=== PATIENT | female | born 1945 | race Caucasian/White ===

== ENCOUNTER → 2024-03-04 | Outpatient (CLI) | payer MEDICARE | END | disposition home or self-care (01) | LOC: RAD 13:17 | PROVIDERS: ATTEND Podiatrist Foot & Ankle Surgery | DX: M19.071 Primary osteoarthritis, right ankle and foot (principal); M85.671 Other cyst of bone, right ankle and foot; M77.51 Other enthesopathy of right foot and ankle; M79.671 Pain in right foot; M25.871 Other specified joint disorders, right ankle and foot | CPT/HCPCS: 73700 ==

== ENCOUNTER 2024-11-14 12:40 | Inpatient (IN) | payer MEDICARE, MEDICAID ==
[~2024-11-14] VITALS: Ht 160 cm; Wt 78.0 kg
[~2024-11-14 12:40] MED LIST: APIX5TAB3 PO; ASPI-611 PO; BUPR-561 PO; CALCIUM PO; ESCI20TA39 PO; ESTR1TAB28 PO; FAMO20TA8 PO; FERR324T2 PO; FOLI0.4T14 PO; LEVO175T7 PO; NAPR-1480 PO; PANT40TA54 PO; PRAM0.5T12 PO; PRESERVISION PO; SPIR1TAB4 PO; VITAMIN B-1 PO
[2024-11-14] MEDS: HYDROcodone/acetaminophen 10/325mg tab PO ONE (15:23)
[2024-11-14 15:28] LABS: BASOPHILS # (AUTO) 0.1 X10'3 (0-0.2); BASOPHILS % (AUTO) 0.3 % (0-1); EOSINOPHILS % (AUTO) 0.1 % (0-6); LYMPHOCYTES # (AUTO) 0.4 X10'3 (1.1-4.8); LYMPHOCYTES % (AUTO) 1.4 % (21-51); MEAN CORPUSCULAR HEMOGLOBIN 22.5 PG (27.0-31.0); MEAN CORPUSCULAR HGB CONC 30.6 g/dL (33.0-36.5); MEAN CORPUSCULAR VOLUME 73.6 FL (78-98); MEAN PLATELET VOLUME 6.8 FL (7.4-10.4); MONOCYTES # (AUTO) 1.8 X10'3 (0-0.9); MONOCYTES % (AUTO) 6.2 % (2-12); NEUTROPHILS # (AUTO) 26.2 X10'3 (1.8-7.7); PLATELET COUNT 379 X10'3 (140-440); RED BLOOD COUNT 2.73 X10'6 (4.20-5.60); RED CELL DISTRIBUTION WIDTH 21.8 % (11.5-14.5)
[2024-11-14 15:33] LABS: WHITE BLOOD COUNT 28.5 X10'3 (4.5-11.0)
[2024-11-14 15:34] LABS: HEMATOCRIT 20.1 % (35.0-45.0); HEMOGLOBIN 6.1 g/dl (12.0-16.0)
[2024-11-14 15:35] LABS: ALBUMIN 2.2 G/DL (3.4-5.0); ANION GAP 9 (8-16); BLOOD UREA NITROGEN 61 MG/DL (7-18); BUN/CREATININE RATIO 39.9 (10.0-20.0); CALCIUM 8.8 MG/DL (8.5-10.1); CHLORIDE 103 MMOL/L (99-107); CREATININE 1.53 MG/DL (0.40-0.90); GLUCOSE 61 MG/DL (70-104); MAGNESIUM 1.9 MG/DL (1.5-2.4); POTASSIUM 3.7 MMOL/L (3.5-5.1); SODIUM 139 MMOL/L (135-145); TOTAL CARBON DIOXIDE 26.6 MMOL/L (24-32); eCRCL 25 ML/MIN; eGFR 33 ML/MIN
[2024-11-14 15:57] LABS: ANISOCYTOSIS 3+; MICROCYTOSIS 1+; PLATELET ESTIMATE NORMAL; TOTAL CELLS COUNTED 100
[2024-11-14 15:58] LABS: HYPOCHROMASIA 2+
[2024-11-14] MEDS: LIDOcaine/PRILOcaine 5gm cream TP ONE (16:10)
[2024-11-14] MEDS: normal saline 1000ML IV soln IVB ONE (16:28)
[2024-11-14] MEDS: CefTRIAXone 2gm/D5W 50ml BAG 50 ML IV ONE (16:30)
[2024-11-14] MEDS ORDERED: diphenhydrAMINE 25mg capsule PO PRN (17:25)
[2024-11-14] MEDS ORDERED: mag hydrox/Alum hydrox/simeth 30ml oral suspension PO PRN (17:25)
[2024-11-14] MEDS ORDERED: morphine 2 MG/ML inj. syringe IV PRN (17:25)
[2024-11-14] MEDS ORDERED: acetaminophen 650mg rectal suppository RC PRN (17:25)
[2024-11-14] MEDS ORDERED: magnesium hydroxide 30ml (MOM) UD suspension PO PRN (17:25)
[2024-11-14] MEDS ORDERED: potassium Cl 20 mEq SR tablet PO PRN (17:25)
[2024-11-14] MEDS ORDERED: magnesium Cl slow-release 64mg tablet PO PRN (17:25)
[2024-11-14] MEDS ORDERED: ondansetron/PF 4mg/2ml inj IV PRN (17:25)
[2024-11-14] MEDS ORDERED: diphenhydrAMINE 50 mg/ml inj IV PRN (17:25)
[2024-11-14] MEDS ORDERED: ondansetron 4mg rapidly disintigrating tab PO PRN (17:25)
[2024-11-14] MEDS ORDERED: magnesium sulf-water 2g/50mL 50 ML IV PRN (17:25)
[2024-11-14] MEDS ORDERED: acetaminophen 325mg tablet PO PRN ×2 (17:25)
[2024-11-14] MEDS ORDERED: magnesium sulf-water 4G/100mL 100 ML IV PRN (17:25)
[2024-11-14] MEDS ORDERED: bisacodyl 10mg suppository rectal RC PRN (17:25)
[2024-11-14 17:53] LABS: APTT 34 SECONDS (22-32); INR 1.4 INR; PROTHROMBIN TIME 14.6 SECONDS (9.0-12.0)
[2024-11-14] MEDS: ringers solution, lacted 1,000 ML IV ONE (17:55)
[2024-11-14 18:07] LABS: PHOSPHORUS 4.7 MG/DL (2.3-4.5); PRO BRAIN NATRIURETIC PEPTIDE 7068 PG/ML (0-450)
[2024-11-14 18:21] LABS: HEMOGLOBIN A1C 6.3 % (4.5-6.2)
[2024-11-14] MEDS: VANCOMYCIN/WATER FOR INJ (PEG) 750MG/150 ML IVPB IV SCH (18:46)
[2024-11-14] MEDS: pantoprazole 40 MG vial IV ONE (18:48)
[2024-11-14 18:50] LABS: LIPASE 29 U/L (16-77)
[2024-11-14 19:10] VITALS: BP 84/46; PULSE 62; RESP 20; TEMP 96.7
[2024-11-14 19:25] VITALS: BP 101/52; PULSE 60; RESP 18; TEMP 96.9
[2024-11-14] MEDS ORDERED: NAPR-1168 (19:26)
[2024-11-14] MEDS: dextrose 50%-water 50ml dispensing syringe IV ONE (19:29)
[2024-11-14] MEDS: normal saline 1000ml 1,000 ML IV SCH (19:37)
[2024-11-14 19:38] LABS: OCCULT BLOOD STOOL POSITIVE (Neg)
[2024-11-14 19:55] VITALS: BP 105/48; PULSE 58; RESP 18; TEMP 96.6
[2024-11-14] MEDS: K and/or MAG REPLACEMENT MC SCH (20:00)
[2024-11-14] MEDS: docusate sod 100mg capsule PO SCH (20:06)
[2024-11-14 20:10] VITALS: BP 108/37; PULSE 60; RESP 16; TEMP 96.9
[2024-11-14 20:45] VITALS: BP 103/51; PULSE 59; RESP 16; TEMP 97
[2024-11-14 22:50] VITALS: BP 121/98; PULSE 56; RESP 12; TEMP 96.7; O2SAT 91
[2024-11-14 22:57] LABS: BILIRUBIN,URINE NEGATIVE (Neg); CLARITY,URINE CLEAR (Clear); COLOR,URINE YELLOW (Yellow); GLUCOSE, URINE NEGATIVE (Neg); KETONES,URINE NEGATIVE (Neg); LEUKOCYTE ESTERASE ,URINE TRACE (Neg); NITRITES, URINE NEGATIVE (Neg); OCCULT BLOOD,URINE NEGATIVE (Neg); PH,URINE 5.5 (4.8-8.0); PROTEIN,URINE NEGATIVE (Neg); UROBILINOGEN,URINE 0.2 E.U/dL (0.2-1.0)
[2024-11-14 23:00] LABS: UA COLLECTION TYPE CLN CATCH MIDSTREAM
[2024-11-14 23:03] LABS: BACTERIA,URINE 1+ /HPF (Neg); RBC,URINE NONE SEEN /HPF (0-2); SQUAMOUS EPITHELIAL CELL,UR MODERATE /LPF (FEW); WBC,URINE 0-4 /HPF (0-4)
[2024-11-14] MEDS: pantoprazole 40MG/NS 100ML BAG 100 ML IV SCH (23:47)
[2024-11-14] MEDS: HYDROcodone/acetaminophen 5mg/325mg tablet PO PRN (23:47)
[2024-11-15] VITALS (22 sets, daily range): BP systolic 90–139; BP diastolic 42–66; PULSE 59–69; RESP 10–18; TEMP 97.2–97.9; O2SAT 92–100
[2024-11-15] MEDS ORDERED: cefazolin 2gm/D5W 100mL 100 ML IV ONE
[2024-11-15 07:02] LABS: BASOPHILS % (AUTO) 0.2 % (0-1); EOSINOPHILS # (AUTO) 0.2 X10'3 (0-0.9); EOSINOPHILS % (AUTO) 0.6 % (0-6); HEMATOCRIT 23.1 % (35.0-45.0); HEMOGLOBIN 7.2 g/dl (12.0-16.0); LYMPHOCYTES # (AUTO) 0.5 X10'3 (1.1-4.8); LYMPHOCYTES % (AUTO) 1.8 % (21-51); MEAN CORPUSCULAR HEMOGLOBIN 23.4 PG (27.0-31.0); MEAN CORPUSCULAR HGB CONC 30.9 g/dL (33.0-36.5); MEAN CORPUSCULAR VOLUME 75.7 FL (78-98); MONOCYTES # (AUTO) 1.1 X10'3 (0-0.9); MONOCYTES % (AUTO) 4.3 % (2-12); NEUTROPHILS # (AUTO) 23.9 X10'3 (1.8-7.7); NEUTROPHILS % (AUTO) 93.1 % (42-75); PLATELET COUNT 298 X10'3 (140-440); RED BLOOD COUNT 3.06 X10'6 (4.20-5.60); RED CELL DISTRIBUTION WIDTH 21.4 % (11.5-14.5)
[2024-11-15 07:14] LABS: ALANINE AMINOTRANSFERASE 27 U/L (12-78); ALBUMIN 1.7 G/DL (3.4-5.0); ALBUMIN/GLOBULIN RATIO 0.5 (1.1-1.5); ALKALINE PHOSPHATASE 128 IU/L (46-116); ANION GAP 12 (8-16); ASPARTATE AMINO TRANSFERASE 26 U/L (10-37); BLOOD UREA NITROGEN 56 MG/DL (7-18); BUN/CREATININE RATIO 36.8 (10.0-20.0); CALCIUM 8.1 MG/DL (8.5-10.1); CHLORIDE 105 MMOL/L (99-107); CHOL/HDL RATIO 2.6 (0.00-4.99); CHOLESTEROL 63 MG/DL (0-200); CREATININE 1.52 MG/DL (0.40-0.90); GLUCOSE 66 MG/DL (70-104); HDL CHOLESTEROL 24 MG/DL (35-60); LDL CHOLESTEROL 26 MG/DL (50-100); MAGNESIUM 1.6 MG/DL (1.5-2.4); POTASSIUM 3.6 MMOL/L (3.5-5.1); SODIUM 140 MMOL/L (135-145); TOTAL CARBON DIOXIDE 23.2 MMOL/L (24-32); TOTAL PROTEIN 5.2 G/DL (6.4-8.2); TRIGLYCERIDES 52 MG/DL (20-135); eCRCL 25 ML/MIN; eGFR 33 ML/MIN
[2024-11-15 07:21] LABS: WHITE BLOOD COUNT 25.7 X10'3 (4.5-11.0)
[2024-11-15 07:51] LABS: ANISOCYTOSIS 3+; MICROCYTOSIS 1+; PLATELET ESTIMATE NORMAL; TOTAL CELLS COUNTED 100
[2024-11-15 07:53] LABS: ELLIPTOCYTES 1+; HYPOCHROMASIA 2+; POLYCHROMASIA 1+; SCHISTOCYTES FEW; TARGET CELLS FEW
[2024-11-15] MEDS: CefTRIAXone/D5W-Rocephin 1gm 50 ML IV SCH (08:21)
[2024-11-15] MEDS ORDERED: MIDAZolam 1 MG/ML 5ML VIAL ONE (13:40)
[2024-11-15] MEDS ORDERED: fentaNYL/PF 50MCG/1 ML 2ML syringe ONE (13:40)
[2024-11-15] MEDS ORDERED: LIDOcaine 2% Viscous 15ml cup ONE (13:40)
[2024-11-16] VITALS (7 sets, daily range): BP systolic 105–128; BP diastolic 45–61; PULSE 64–68; RESP 12–20; TEMP 96.8–97.9; O2SAT 92–98
[2024-11-16] MEDS: ringers solution, lacted 1,000 ML IV ONE (02:05)
[2024-11-16 06:41] LABS: BASOPHILS % (AUTO) 0.2 % (0-1); EOSINOPHILS # (AUTO) 0.4 X10'3 (0-0.9); EOSINOPHILS % (AUTO) 1.7 % (0-6); HEMOGLOBIN 7.3 g/dl (12.0-16.0); LYMPHOCYTES # (AUTO) 0.5 X10'3 (1.1-4.8); MEAN CORPUSCULAR HEMOGLOBIN 23.9 PG (27.0-31.0); MEAN CORPUSCULAR HGB CONC 31.9 g/dL (33.0-36.5); MEAN PLATELET VOLUME 6.9 FL (7.4-10.4); MONOCYTES # (AUTO) 0.8 X10'3 (0-0.9); MONOCYTES % (AUTO) 3.3 % (2-12); NEUTROPHILS # (AUTO) 21.6 X10'3 (1.8-7.7); NEUTROPHILS % (AUTO) 92.8 % (42-75); PLATELET COUNT 308 X10'3 (140-440); RED BLOOD COUNT 3.07 X10'6 (4.20-5.60); RED CELL DISTRIBUTION WIDTH 21.8 % (11.5-14.5); WHITE BLOOD COUNT 23.3 X10'3 (4.5-11.0)
[2024-11-16 07:04] LABS: ANION GAP 12 (8-16); BILIRUBIN,TOTAL 0.7 MG/DL (0.1-1.0); BLOOD UREA NITROGEN 57 MG/DL (7-18); BUN/CREATININE RATIO 37.3 (10.0-20.0); CALCIUM 7.9 MG/DL (8.5-10.1); CHLORIDE 105 MMOL/L (99-107); CREATININE 1.53 MG/DL (0.40-0.90); GLUCOSE 73 MG/DL (70-104); MAGNESIUM 1.7 MG/DL (1.5-2.4); POTASSIUM 3.3 MMOL/L (3.5-5.1); SODIUM 138 MMOL/L (135-145); TOTAL CARBON DIOXIDE 21.1 MMOL/L (24-32); eCRCL 25 ML/MIN; eGFR 33 ML/MIN
[2024-11-16 07:05] LABS: ALANINE AMINOTRANSFERASE 27 U/L (12-78); ALBUMIN 1.7 G/DL (3.4-5.0); ALBUMIN/GLOBULIN RATIO 0.5 (1.1-1.5); ALKALINE PHOSPHATASE 150 IU/L (46-116); ASPARTATE AMINO TRANSFERASE 25 U/L (10-37); TOTAL PROTEIN 5.4 G/DL (6.4-8.2)
[2024-11-16 07:35] LABS: TOTAL CELLS COUNTED 100
[2024-11-16 07:36] LABS: ANISOCYTOSIS 3+; ELLIPTOCYTES FEW; MICROCYTOSIS 1+; PLATELET ESTIMATE NORMAL; SCHISTOCYTES FEW
[2024-11-16 08:39] LABS: PHOSPHORUS 3.6 MG/DL (2.3-4.5)
[2024-11-16] MEDS: dextrose 5%-1/2 normal saline 1,000 ML IV SCH (11:16)
[2024-11-16] MEDS: potassium Cl 40MEQ/1/2NS 520ml 520 ML IV PRN (13:11)
[2024-11-17] VITALS (10 sets, daily range): BP systolic 120–144; BP diastolic 57–74; PULSE 60–78; RESP 12–22; TEMP 97.2–98.8; O2SAT 94–98
[2024-11-17 06:36] LABS: BASOPHILS # (AUTO) 0.1 X10'3 (0-0.2); BASOPHILS % (AUTO) 0.4 % (0-1); EOSINOPHILS # (AUTO) 0.4 X10'3 (0-0.9); HEMATOCRIT 23.3 % (35.0-45.0); HEMOGLOBIN 7.2 g/dl (12.0-16.0); LYMPHOCYTES # (AUTO) 0.5 X10'3 (1.1-4.8); LYMPHOCYTES % (AUTO) 2.2 % (21-51); MEAN CORPUSCULAR HEMOGLOBIN 23.5 PG (27.0-31.0); MEAN CORPUSCULAR VOLUME 75.9 FL (78-98); MEAN PLATELET VOLUME 6.9 FL (7.4-10.4); MONOCYTES # (AUTO) 0.8 X10'3 (0-0.9); MONOCYTES % (AUTO) 3.7 % (2-12); NEUTROPHILS # (AUTO) 19.9 X10'3 (1.8-7.7); NEUTROPHILS % (AUTO) 91.7 % (42-75); PLATELET COUNT 306 X10'3 (140-440); RED BLOOD COUNT 3.07 X10'6 (4.20-5.60); RED CELL DISTRIBUTION WIDTH 22.2 % (11.5-14.5); WHITE BLOOD COUNT 21.6 X10'3 (4.5-11.0)
[2024-11-17 07:30] LABS: ALANINE AMINOTRANSFERASE 27 U/L (12-78); ALBUMIN 1.6 G/DL (3.4-5.0); ALBUMIN/GLOBULIN RATIO 0.4 (1.1-1.5); ALKALINE PHOSPHATASE 164 IU/L (46-116); ANION GAP 9 (8-16); ASPARTATE AMINO TRANSFERASE 25 U/L (10-37); BILIRUBIN,TOTAL 0.5 MG/DL (0.1-1.0); BLOOD UREA NITROGEN 42 MG/DL (7-18); BUN/CREATININE RATIO 32.8 (10.0-20.0); CALCIUM 7.9 MG/DL (8.5-10.1); CHLORIDE 105 MMOL/L (99-107); CREATININE 1.28 MG/DL (0.40-0.90); GLUCOSE 109 MG/DL (70-104); MAGNESIUM 1.8 MG/DL (1.5-2.4); POTASSIUM 3.4 MMOL/L (3.5-5.1); SODIUM 134 MMOL/L (135-145); TOTAL CARBON DIOXIDE 19.7 MMOL/L (24-32); TOTAL PROTEIN 5.5 G/DL (6.4-8.2); eCRCL 30 ML/MIN; eGFR 40 ML/MIN
[2024-11-17] MEDS: potassium Cl 20 mEq SR tablet PO PRN ×2 (07:51→23:38)
[2024-11-17] MEDS: VANCOMYCIN LEVEL IV ONE (18:07)
[2024-11-17] MEDS ORDERED: potassium Cl 40MEQ/1/2NS 520ml 520 ML IV PRN (23:25)
[2024-11-17] MEDS ORDERED: magnesium sulf-water 4G/100mL 100 ML IV PRN (23:25)
[2024-11-17] MEDS ORDERED: magnesium Cl slow-release 64mg tablet PO PRN (23:25)
[2024-11-17] MEDS ORDERED: magnesium sulf-water 2g/50mL 50 ML IV PRN (23:25)
[2024-11-17] MEDS ORDERED: potassium Cl 20 mEq SR tablet PO PRN (23:25)
[2024-11-18] VITALS (8 sets, daily range): BP systolic 94–158; BP diastolic 53–99; PULSE 73–85; RESP 14–18; TEMP 97.1–98.6; O2SAT 95–99
[2024-11-18] MEDS ORDERED: K and/or MAG REPLACEMENT MC SCH (08:00)
[2024-11-18 08:18] LABS: BASOPHILS % (AUTO) 0.2 % (0-1); EOSINOPHILS # (AUTO) 0.3 X10'3 (0-0.9); EOSINOPHILS % (AUTO) 1.4 % (0-6); HEMATOCRIT 24.6 % (35.0-45.0); HEMOGLOBIN 7.5 g/dl (12.0-16.0); LYMPHOCYTES # (AUTO) 0.5 X10'3 (1.1-4.8); LYMPHOCYTES % (AUTO) 2.3 % (21-51); MEAN CORPUSCULAR HEMOGLOBIN 23.4 PG (27.0-31.0); MEAN CORPUSCULAR HGB CONC 30.4 g/dL (33.0-36.5); MEAN CORPUSCULAR VOLUME 76.9 FL (78-98); MONOCYTES # (AUTO) 1.1 X10'3 (0-0.9); MONOCYTES % (AUTO) 5.1 % (2-12); NEUTROPHILS # (AUTO) 19.1 X10'3 (1.8-7.7); PLATELET COUNT 363 X10'3 (140-440); RED CELL DISTRIBUTION WIDTH 22.4 % (11.5-14.5)
[2024-11-18 08:37] LABS: ALANINE AMINOTRANSFERASE 25 U/L (12-78); ALBUMIN 1.6 G/DL (3.4-5.0); ALBUMIN/GLOBULIN RATIO 0.4 (1.1-1.5); ALKALINE PHOSPHATASE 181 IU/L (46-116); ANION GAP 12 (8-16); ASPARTATE AMINO TRANSFERASE 21 U/L (10-37); BILIRUBIN,TOTAL 0.6 MG/DL (0.1-1.0); BLOOD UREA NITROGEN 30 MG/DL (7-18); BUN/CREATININE RATIO 32.3 (10.0-20.0); CALCIUM 8.2 MG/DL (8.5-10.1); CHLORIDE 106 MMOL/L (99-107); CREATININE 0.93 MG/DL (0.40-0.90); GLUCOSE 116 MG/DL (70-104); MAGNESIUM 1.8 MG/DL (1.5-2.4); POTASSIUM 3.9 MMOL/L (3.5-5.1); SODIUM 136 MMOL/L (135-145); TOTAL CARBON DIOXIDE 17.9 MMOL/L (24-32); TOTAL PROTEIN 5.9 G/DL (6.4-8.2); eCRCL 41 ML/MIN; eGFR 58 ML/MIN
[2024-11-18 10:46] LABS: TOTAL CELLS COUNTED 100
[2024-11-18 10:47] LABS: ANISOCYTOSIS 3+; MICROCYTOSIS 1+; PLATELET ESTIMATE NORMAL
[2024-11-18 10:48] LABS: ACANTHOCYTES FEW; BURR CELLS 1+; ELLIPTOCYTES 1+
[2024-11-18 10:49] LABS: HYPOCHROMASIA 1+
[2024-11-18 10:50] LABS: SCHISTOCYTES FEW
[2024-11-18] MEDS: vancomycin/NS 1 GM ADD-VANTAGE 250 ML IV SCH (17:30)
[2024-11-18] MEDS: temazepam 15mg capsule PO PRN (20:06)
[2024-11-19] VITALS (7 sets, daily range): BP systolic 146–163; BP diastolic 61–71; PULSE 53–79; RESP 15–20; TEMP 97.1–98.8; O2SAT 91–97
[2024-11-19 07:10] LABS: BASOPHILS % (AUTO) 0.3 % (0-1); EOSINOPHILS # (AUTO) 0.4 X10'3 (0-0.9); EOSINOPHILS % (AUTO) 2.3 % (0-6); HEMATOCRIT 24.2 % (35.0-45.0); HEMOGLOBIN 7.4 g/dl (12.0-16.0); LYMPHOCYTES # (AUTO) 0.6 X10'3 (1.1-4.8); LYMPHOCYTES % (AUTO) 3.6 % (21-51); MEAN CORPUSCULAR HEMOGLOBIN 23.1 PG (27.0-31.0); MEAN CORPUSCULAR HGB CONC 30.7 g/dL (33.0-36.5); MEAN CORPUSCULAR VOLUME 75.4 FL (78-98); MEAN PLATELET VOLUME 6.9 FL (7.4-10.4); MONOCYTES # (AUTO) 1.3 X10'3 (0-0.9); MONOCYTES % (AUTO) 7.6 % (2-12); NEUTROPHILS # (AUTO) 14.7 X10'3 (1.8-7.7); NEUTROPHILS % (AUTO) 86.2 % (42-75); PLATELET COUNT 359 X10'3 (140-440); RED BLOOD COUNT 3.21 X10'6 (4.20-5.60); RED CELL DISTRIBUTION WIDTH 22.5 % (11.5-14.5); WHITE BLOOD COUNT 17.1 X10'3 (4.5-11.0)
[2024-11-19 07:33] LABS: ALANINE AMINOTRANSFERASE 25 U/L (12-78); ALBUMIN 1.5 G/DL (3.4-5.0); ALBUMIN/GLOBULIN RATIO 0.3 (1.1-1.5); ALKALINE PHOSPHATASE 176 IU/L (46-116); ANION GAP 10 (8-16); ASPARTATE AMINO TRANSFERASE 22 U/L (10-37); BILIRUBIN,TOTAL 0.5 MG/DL (0.1-1.0); BLOOD UREA NITROGEN 21 MG/DL (7-18); BUN/CREATININE RATIO 26.9 (10.0-20.0); CALCIUM 8.3 MG/DL (8.5-10.1); CHLORIDE 109 MMOL/L (99-107); CREATININE 0.78 MG/DL (0.40-0.90); GLUCOSE 88 MG/DL (70-104); MAGNESIUM 1.7 MG/DL (1.5-2.4); POTASSIUM 3.7 MMOL/L (3.5-5.1); SODIUM 139 MMOL/L (135-145); TOTAL CARBON DIOXIDE 20.3 MMOL/L (24-32); TOTAL PROTEIN 5.8 G/DL (6.4-8.2); eCRCL 49 ML/MIN; eGFR 71 ML/MIN
[2024-11-19] MEDS: pantoprazole 40mg Tablet.DR PO SCH (08:39)
[2024-11-20] VITALS (12 sets, daily range): BP systolic 117–159; BP diastolic 57–89; PULSE 69–96; RESP 13–18; TEMP 96.9–98.2; O2SAT 93–98
[2024-11-20] MEDS: traMADol 50MG tablet PO PRN (03:14)
[2024-11-20 07:45] LABS: MAGNESIUM 1.7 MG/DL (1.5-2.4); POTASSIUM 3.8 MMOL/L (3.5-5.1)
[2024-11-20] MEDS: HYDROcodone/acetaminophen 5mg/325mg tablet PO PRN (11:27)
[2024-11-20] MEDS: albuterol 2.5 MG/3 ML nebule NEB SCH (20:13)
[2024-11-20] MEDS ORDERED: DORZ10DR9 (20:38)
[2024-11-20] MEDS ORDERED: LATA2.5D14 (20:38)
[2024-11-21] VITALS (26 sets, daily range): BP systolic 95–132; BP diastolic 46–83; PULSE 65–99; RESP 14–26; TEMP 97.1–97.9; O2SAT 91–100
[2024-11-21 07:16] LABS: MAGNESIUM 1.7 MG/DL (1.5-2.4); POTASSIUM 4.1 MMOL/L (3.5-5.1)
[2024-11-21 16:24] LABS: BASOPHILS # (AUTO) 0.1 X10'3 (0-0.2); BASOPHILS % (AUTO) 0.5 % (0-1); EOSINOPHILS # (AUTO) 0.1 X10'3 (0-0.9); EOSINOPHILS % (AUTO) 0.9 % (0-6); HEMATOCRIT 22.2 % (35.0-45.0); LYMPHOCYTES # (AUTO) 0.5 X10'3 (1.1-4.8); LYMPHOCYTES % (AUTO) 3.2 % (21-51); MEAN CORPUSCULAR HEMOGLOBIN 23.3 PG (27.0-31.0); MEAN CORPUSCULAR HGB CONC 30.5 g/dL (33.0-36.5); MEAN CORPUSCULAR VOLUME 76.1 FL (78-98); MONOCYTES # (AUTO) 1.4 X10'3 (0-0.9); MONOCYTES % (AUTO) 8.6 % (2-12); NEUTROPHILS # (AUTO) 13.8 X10'3 (1.8-7.7); NEUTROPHILS % (AUTO) 86.8 % (42-75); PLATELET COUNT 298 X10'3 (140-440); RED BLOOD COUNT 2.92 X10'6 (4.20-5.60); RED CELL DISTRIBUTION WIDTH 22.1 % (11.5-14.5); WHITE BLOOD COUNT 15.8 X10'3 (4.5-11.0)
[2024-11-21] MEDS ORDERED: bacitracin 15gm ointment TP ONE (16:24)
[2024-11-21 16:31] LABS: HEMOGLOBIN 6.8 g/dl (12.0-16.0)
[2024-11-21 16:36] LABS: ALANINE AMINOTRANSFERASE 19 U/L (12-78); ALBUMIN 1.3 G/DL (3.4-5.0); ALBUMIN/GLOBULIN RATIO 0.3 (1.1-1.5); ALKALINE PHOSPHATASE 127 IU/L (46-116); ANION GAP 11 (8-16); ASPARTATE AMINO TRANSFERASE 23 U/L (10-37); BILIRUBIN,TOTAL 0.4 MG/DL (0.1-1.0); BLOOD UREA NITROGEN 16 MG/DL (7-18); BUN/CREATININE RATIO 20.3 (10.0-20.0); CALCIUM 8.1 MG/DL (8.5-10.1); CHLORIDE 108 MMOL/L (99-107); CREATININE 0.79 MG/DL (0.40-0.90); GLUCOSE 89 MG/DL (70-104); POTASSIUM 4.3 MMOL/L (3.5-5.1); SODIUM 140 MMOL/L (135-145); TOTAL CARBON DIOXIDE 21.1 MMOL/L (24-32); TOTAL PROTEIN 5.8 G/DL (6.4-8.2); VANCOMYCIN,TROUGH 14.6 ug/mL (10.0-20.0); eCRCL 49 ML/MIN; eGFR 70 ML/MIN
[2024-11-21] MEDS ORDERED: labetalol 20mg/4ml (5mg/ml) syringe IV PRN (16:40)
[2024-11-21] MEDS ORDERED: ondansetron/PF 4mg/2ml inj IV PRN (16:40)
[2024-11-21] MEDS ORDERED: HYDROmorphone/PF 0.2 MG/ML SYRINGE IV PRN (16:40)
[2024-11-21] MEDS: ringers solution, lacted 1,000 ML IV SCH (16:40)
[2024-11-21] MEDS ORDERED: hydrALAZINE 20mg/ml inj. IV PRN (16:40)
[2024-11-21] MEDS ORDERED: meperidine/PF 25mg/ml syringe IV PRN (16:40)
[2024-11-21] MEDS ORDERED: acetaminophen 1,000mg/100ml IV 100 ML IV PRN (16:40)
[2024-11-21] MEDS ORDERED: proCHLORperazine 10 MG/2 ml inj IV PRN (16:40)
[2024-11-21] MEDS ORDERED: morphine 2 MG/ML inj. syringe IV PRN (16:40)
[2024-11-21 16:50] LABS: PLATELET ESTIMATE NORMAL; TOTAL CELLS COUNTED 100
[2024-11-21 16:51] LABS: STOMATOCYTES 2+
[2024-11-21 16:52] LABS: ANISOCYTOSIS 3+; HYPOCHROMASIA 2+; MICROCYTOSIS 2+
[2024-11-21] MEDS ORDERED: fentaNYL/PF 50MCG/1 ML 2ML syringe ONE (17:14)
[2024-11-21] MEDS ORDERED: midazolam 1 mg/ML 2ml injection ONE (17:15)
[2024-11-21] MEDS ORDERED: sevoflurane 250ml liquid IH ONE (17:21)
[2024-11-21] MEDS: VANCOMYCIN LEVEL IV ONE (17:30)
[2024-11-21] MEDS ORDERED: tobramycin 40mg/ml inj ONE (17:32)
[2024-11-21] MEDS ORDERED: 0.9 % SODIUM CHLORIDE 10 ML VIAL ONE (18:09)
[2024-11-21] MEDS ORDERED: propofol inj 20 ML IV ONE (18:09)
[2024-11-21] MEDS ORDERED: ePHEDrine 50MG/ML INJ. ONE (18:09)
[2024-11-21] MEDS ORDERED: LIDOcaine 2% (20mg/ml) 5ml vial ONE (18:09)
[2024-11-21] MEDS ORDERED: ondansetron/PF 4mg/2ml inj ONE (18:10)
[2024-11-21] MEDS ORDERED: dexamethasone sod phosphate 4mg/ml inj. ONE (18:11)
[2024-11-21] MEDS ORDERED: albuterol 60 PUFF/8GM Inhaler (90mcg/1 puff) IH ONE (18:37)
[2024-11-21] MEDS: BUPIVAcaine 0.25% w/Epi /PF 30ml vial IJ ONE (18:44)
[2024-11-21 22:35] LABS: MEAN CORPUSCULAR HEMOGLOBIN 23.3 PG (27.0-31.0); MEAN CORPUSCULAR HGB CONC 30.6 g/dL (33.0-36.5); MEAN CORPUSCULAR VOLUME 76.2 FL (78-98); MEAN PLATELET VOLUME 6.6 FL (7.4-10.4); PLATELET COUNT 341 X10'3 (140-440); RED BLOOD COUNT 2.77 X10'6 (4.20-5.60); RED CELL DISTRIBUTION WIDTH 22.4 % (11.5-14.5); WHITE BLOOD COUNT 20.4 X10'3 (4.5-11.0)
[2024-11-21 22:43] LABS: HEMATOCRIT 21.1 % (35.0-45.0); HEMOGLOBIN 6.5 g/dl (12.0-16.0)
[2024-11-22] VITALS (17 sets, daily range): BP systolic 110–139; BP diastolic 57–85; PULSE 59–95; RESP 13–22; TEMP 97.6–98; O2SAT 90–100
[2024-11-22 08:09] LABS: BASOPHILS % (AUTO) 0.1 % (0-1); EOSINOPHILS % (AUTO) 0 % (0-6); HEMOGLOBIN 7.2 g/dl (12.0-16.0); LYMPHOCYTES # (AUTO) 0.3 X10'3 (1.1-4.8); LYMPHOCYTES % (AUTO) 2.1 % (21-51); MEAN CORPUSCULAR HEMOGLOBIN 23.8 PG (27.0-31.0); MEAN CORPUSCULAR HGB CONC 31.2 g/dL (33.0-36.5); MEAN CORPUSCULAR VOLUME 76.4 FL (78-98); MEAN PLATELET VOLUME 6.7 FL (7.4-10.4); MONOCYTES # (AUTO) 0.7 X10'3 (0-0.9); MONOCYTES % (AUTO) 4.4 % (2-12); NEUTROPHILS # (AUTO) 14.7 X10'3 (1.8-7.7); NEUTROPHILS % (AUTO) 93.4 % (42-75); PLATELET COUNT 276 X10'3 (140-440); RED BLOOD COUNT 3.01 X10'6 (4.20-5.60); RED CELL DISTRIBUTION WIDTH 21.1 % (11.5-14.5); WHITE BLOOD COUNT 15.8 X10'3 (4.5-11.0)
[2024-11-22 08:56] LABS: ALANINE AMINOTRANSFERASE 22 U/L (12-78); ALBUMIN 1.5 G/DL (3.4-5.0); ALBUMIN/GLOBULIN RATIO 0.3 (1.1-1.5); ALKALINE PHOSPHATASE 137 IU/L (46-116); ANION GAP 11 (8-16); ASPARTATE AMINO TRANSFERASE 21 U/L (10-37); BILIRUBIN,TOTAL 0.3 MG/DL (0.1-1.0); BLOOD UREA NITROGEN 20 MG/DL (7-18); BUN/CREATININE RATIO 21.7 (10.0-20.0); CALCIUM 8.2 MG/DL (8.5-10.1); CHLORIDE 106 MMOL/L (99-107); CREATININE 0.92 MG/DL (0.40-0.90); GLUCOSE 182 MG/DL (70-104); MAGNESIUM 1.7 MG/DL (1.5-2.4); POTASSIUM 4.5 MMOL/L (3.5-5.1); SODIUM 138 MMOL/L (135-145); TOTAL CARBON DIOXIDE 21.5 MMOL/L (24-32); eCRCL 42 ML/MIN; eGFR 59 ML/MIN
[2024-11-22] MEDS: VANCOMYCIN/WATER FOR INJ (PEG) 1.25GM/250 ML IVPB IV SCH (10:52)
[2024-11-22 11:36] LABS: HEMATOCRIT 23.1 % (35.0-45.0); HEMOGLOBIN 7.3 g/dl (12.0-16.0); MEAN CORPUSCULAR HEMOGLOBIN 24.3 PG (27.0-31.0); MEAN CORPUSCULAR HGB CONC 31.7 g/dL (33.0-36.5); MEAN CORPUSCULAR VOLUME 76.5 FL (78-98); MEAN PLATELET VOLUME 6.9 FL (7.4-10.4); PLATELET COUNT 292 X10'3 (140-440); RED BLOOD COUNT 3.02 X10'6 (4.20-5.60); RED CELL DISTRIBUTION WIDTH 21.3 % (11.5-14.5); WHITE BLOOD COUNT 15.9 X10'3 (4.5-11.0)
[2024-11-22] MEDS ORDERED: VANCOMYCIN/H2O 1.25G/250mL PB 250 ML IV SCH (18:00)
[2024-11-22] MEDS ORDERED: ferrous gluconate 324mg tablet PO SCH (20:00)
[2024-11-22] MEDS ORDERED: famotidine 20mg tablet PO SCH (21:00)
[2024-11-22] MEDS ORDERED: pramipexole 0.25mg tablet PO SCH (21:00)
[2024-11-22] MEDS ORDERED: pantoprazole 40mg Tablet.DR PO SCH (21:00)
[2024-11-23] MEDS ORDERED: levoTHYROXINE 175mcg tablet PO SCH (07:00)
[2024-11-23] MEDS ORDERED: BUPROPION HCL 150MG XL 24 HR 150 MG TAB PO SCH (08:00)
[2024-11-23] MEDS ORDERED: PRESERVISION PO SCH (08:00)
[2024-11-23] MEDS ORDERED: folic acid 0.4mg tablet PO SCH (08:00)
[2024-11-23] MEDS ORDERED: apixaban 5mg tablet PO SCH (08:00)
[2024-11-23] MEDS ORDERED: ESCITALOPRAM 10 mg tablet 10 MG TABLET PO SCH (08:00)
[2024-11-23] MEDS ORDERED: aspirin 81mg, enteric-coated 1 TAB TABLET.DR PO SCH (08:00)
[2024-11-25] MEDS ORDERED: VANCOMYCIN LEVEL IV ONE ×2 (09:30→17:30)
== END 2024-11-22 16:25 | DRG 856 ==
LOC: ER 12:41 → ED HOLD 17:37 → PCU 3S 22:55
PROVIDERS: ADMIT Family Medicine; ATTEND Family Medicine
PROC: 30233N1 Transfusion of Nonautologous Red Blood Cells into Peripheral Vein, Percutaneous Approach (ICD-10-PCS; 2024-11-14)
PROC: 0DB98ZX Excision of Duodenum, Via Natural or Artificial Opening Endoscopic, Diagnostic (ICD-10-PCS; 2024-11-15)
PROC: 0DB68ZX Excision of Stomach, Via Natural or Artificial Opening Endoscopic, Diagnostic (ICD-10-PCS; 2024-11-15)
PROC: 0SPF04Z Removal of Internal Fixation Device from Right Ankle Joint, Open Approach (ICD-10-PCS; principal; 2024-11-21 17:21)
DX: T81.49XA Infection following a procedure, other surgical site, initial encounter (principal); A41.02 Sepsis due to Methicillin resistant Staphylococcus aureus; L03.115 Cellulitis of right lower limb; N17.9 Acute kidney failure, unspecified; M46.26 Osteomyelitis of vertebra, lumbar region; K92.2 Gastrointestinal hemorrhage, unspecified; D62 Acute posthemorrhagic anemia; M86.8X7 Other osteomyelitis, ankle and foot; G93.40 Encephalopathy, unspecified; L02.611 Cutaneous abscess of right foot; E78.5 Hyperlipidemia, unspecified; G89.4 Chronic pain syndrome; K86.9 Disease of pancreas, unspecified; F19.10 Other psychoactive substance abuse, uncomplicated; E88.09 Other disorders of plasma-protein metabolism, not elsewhere classified; E86.1 Hypovolemia; I50.9 Heart failure, unspecified; K21.9 Gastro-esophageal reflux disease without esophagitis; E03.9 Hypothyroidism, unspecified; G25.81 Restless legs syndrome; I48.91 Unspecified atrial fibrillation; N18.9 Chronic kidney disease, unspecified; T39.395A Adverse effect of other nonsteroidal anti-inflammatory drugs [NSAID], initial encounter; E16.2 Hypoglycemia, unspecified; Z88.1 Allergy status to other antibiotic agents; Z79.01 Long term (current) use of anticoagulants; Z99.3 Dependence on wheelchair; Z80.1 Family history of malignant neoplasm of trachea, bronchus and lung; Z98.1 Arthrodesis status; Z88.8 Allergy status to other drugs, medicaments and biological substances; Z91.040 Latex allergy status; Y92.89 Other specified places as the place of occurrence of the external cause
CPT/HCPCS: 36415; 36430; 36569; 43239; 71045; 71250; 73600; 73700; 74176; 74181; 76000; 76700; 76942; 80048; 80053; 80061; 80202; 81001; 82272; 82948; 83036; 83605; 83690; 83735; 83880; 84100; 84132; 84145; 84484; 85007; 85025; 85027; 85610; 85651; 85730; 86885; 86900; 86901; 86920; 87040; 87077; 87081; 87088; 87186; 88305; 88341; 88342; 93005; 93306; 93925; 94640; 94760; 97161; 97530; 99152; 99285; A4615; A4618; A4620; A6213; A6222; A6253; A6258; A6446; A6449; A7000; C1713; C1751; G0378; J0696; J1100; J2003; J2250; J2405; J2470; J2704; J3010; J3260; J3370; J3372; J3480; J3490; J7030; J7040; J7120; P9016; S0020